=== PATIENT | male | born 1975 | race Caucasian/White ===

== ENCOUNTER 2019-08-02 08:38 | Outpatient (CLI) | payer OTHER, SELFPAY ==
[2019-08-02 09:26] LABS: Add Urine Microscopic? YES; Appearance Urine Clear (Clear); Bacteria Urine Trace /hpf; Bilirubin Urine Negative (Negative); Blood Urine 1+ (Negative); Color Urine Yellow (Yellow); Glucose Urine UA Negative (Negative); Ketones Urine Negative (Negative); Leukocyte Esterase Ur Negative LEU/UL (NEGATIVE); Mucus Urine Rare /lpf; Nitrate Urine Negative (Negative); Protein Urine Negative (Negative); RBC Urine 0-2 /hpf (0-2); Squamous Epithelial Cell Urine Rare /hpf (Few); Urobilinogen Urine Negative mg/dL (<2.0); WBC Urine 0-3 /hpf (0-3)
[2019-08-02 09:33] LABS: Hematocrit 45.6 % (42.0-52.0); Hemoglobin 14.8 g/dL (14.0-18.0); Mean Corpuscular HGB Conc 32.5 g/dl (32-36); Mean Corpuscular Hemoglobin 32.5 pg (26-34); Mean Platelet Volume 9.9 fl (7.4-10.4); Platelet Count Result 307 k/mm3 (150-375); Red Blood Count 4.56 M/mm3 (4.6-6.20); Red Cell Distribution Width 13.3 % (11.5-14.5); White Blood Count 9.1 K/mm3 (4.5-10.0)
[2019-08-02 09:35] LABS: Hemoglobin A1C 5.3 % (<5.7)
[2019-08-02 09:36] LABS: Alanine Aminotransferase 15 U/L (4-50); Albumin Level 4.2 g/dL (3.5-5.1); Alkaline Phosphatase 69 U/L (38-126); Aspartate Amino Transferase 21 U/L (17-59); Bilirubin,Total 0.7 mg/dL (0.2-1.3); Blood Urea Nitrogen 11 mg/dL (9-20); Calcium 8.9 mg/dL (8.4-10.2); Carbon Dioxide 24 mmol/L (22-30); Chloride 107 mmol/L (98-107); Cholesterol 142 mg/dL (0-200); Estimated Glomerular Filt Rate > 60; Glucose 103 mg/dL (75-110); HDL Direct 37 mg/dL; Sodium 144 mmol/L (137-145); Triglycerides 110 mg/dL (<150)
[2019-08-02 09:48] LABS: LDL Cholesterol Direct 87 mg/dL
[2019-08-02 10:11] LABS: Prostate Specific Antigen 0.8 ng/mL (< OR = 4.0)
== END 2019-08-02 08:39 | disposition home or self-care (01) ==
PROVIDERS: PCP Family Medicine Sports Medicine; Visit Provider Family Medicine Sports Medicine
DX: I10 Essential (primary) hypertension (principal); E11.9 Type 2 diabetes mellitus without complications; F41.9 Anxiety disorder, unspecified
CPT/HCPCS: 36415; 80053; 80061; 81001; 83036; 84153; 84443; 85027

== ENCOUNTER 2019-10-14 14:19 | Outpatient (CLI) | payer OTHER, SELFPAY ==
--- NOTE | ~2019-10-14 | CT_ITS ---
EXAMINATION: CT abdomen pelvis wo/w con EXAM DATE: 10/14/2019 15:39 INDICATION: Microscopic hematuria. TECHNIQUE: Spiral CT of the abdomen and pelvis was performed without contrast. The patient was then injected with small bolus intravenous Omnipaque 350, followed by delay of approximately 10 minutes to allow collecting system to opacify. A post contrast scan abdomen and pelvis was performed during inj ection of remaining contrast. A total of 130 cc intravenous contrast was administered. The dose-alaina th product (DLP) for this examination was 657.66 mGy-cm. The exposure was tailored according to hilda ent size (auto mA exposure control), and iterative reconstruction (ASIR) was used as additional dose reduction technique. There is no prior study for comparison. FINDINGS: There are 2 punctate right calyceal stones up to about 2 mm, and similar sized single left mid calyceal stone. No obstructing stones. The kidneys enhance symmetrically. There are no suspicio us renal lesions. The calyces and opacified portions of ureters are unremarkable, without filling de fects or focal suspicious strictures. The bladder is unremarkable. The prostate is unremarkable. The liver, spleen, adrenal glands and pancreas are unremarkable. Gallbladder is unremarkable. No bi liary obstruction. There is no retroperitoneal or pelvic lymphadenopathy. The appendix is large in caliber but does not appear obstructed and there is no adjacent inflammation . The stomach and small bowel are unremarkable. There is expected amount of colonic stool. No patrick e intraperitoneal gas. The heart is normal in size. There are no pericardial or pleural effusions. The lung bases are unremarkable. Moderate to severe disc disease L2-3, moderate at L4-5 and L5-S1. There are no osteoblastic or osteolytic lesions identified. IMPRESSION: Punctate bilateral nephrolithiasis. Reviewed, dictated and finalized at location A.
--- NOTE | ~2019-10-14 | XR_ITS ---
XR abdomen/kub 1V 10/14/2019 14:41 INDICATION: Microscopic hematuria TECHNIQUE: KUB COMPARISON: No prior studies for comparison. FINDINGS: Bowel gas pattern is normal. There is no evidence of free air, mass, organomegaly, ascites or obstruction. No abnormal calculi are seen. The bones appear intact. Moderate lumbar spondylosis . There are pelvic phleboliths. IMPRESSION: 1: No acute abdominal abnormality identified. Reviewed, dictated and finalized at location A.
[2019-10-14 15:13] LABS: Estimated Glomerular Filt Rate > 60
== END 2019-10-14 14:20 | disposition home or self-care (01) ==
PROVIDERS: PCP Family Medicine Sports Medicine; Visit Provider Urology
DX: N20.0 Calculus of kidney (principal)
CPT/HCPCS: 36415; 74018; 74178; Q9967

== ENCOUNTER 2025-03-13 00:28 | Day surgery (SDC) | payer OTHER, SELFPAY ==
[2025-03-02 09:50] VITALS: BMI 25.9
[2025-03-13 08:42] VITALS: BP 179/109; PULSE 74; RESP 20; TEMP 36.8; O2SAT 100; BMI 25.2
[2025-03-13] MEDS: LACTATED RINGERS 1,000 ML 150 ML IV CONT (08:52)
--- NOTE | 2025-03-13 09:27 | SUR.PREOP ---
Patient informed of anesthesia delay- denies any issues at this time. I will keep them updated.
--- NOTE | 2025-03-13 11:03 | WPDANESEPPF ---
Anes - Initial Pre Proc Eval Procedure: Operation Date: 03/13/25 10:00 Proposed Procedures p Screening Colonoscopy - Rome Shannon MD Date/Time: 03/13/25 11:03 Surgeon: Rome Shannon MD Pre Op Diagnosis: Screening Patient Data Age: 49 Gender: M Height: 1.68 m Weight: 71.1 kg Last Vital Signs Temp 98.2 F 03/13/25 08:42 Pulse 74 03/13/25 08:42 Resp 20 03/13/25 08:42 BP 179/109 H 03/13/25 08:42 Pulse Ox 100 03/13/25 08:42 O2 Del Method Room Air 03/13/25 08:42 Allergies Allergy/AdvReac Type Severity Reaction Status Date / Time No Known Allergies Allergy Verified 03/13/25 08:41 Home Medications ?Medication ?Instructions ?Recorded ?Confirmed ?Type amlodipine 10 mg tablet 10 mg PO DAILY 06/13/23 03/13/25 History citalopram 20 mg tablet (Celexa) 20 mg PO DAILY 06/13/23 03/13/25 History fluticasone fur. 200 mcg-umeclid 1 inh inhalation DAILY 06/13/23 03/13/25 History 62.5 mcg-vilant 25 mcg inhalat.powder (Trelegy Ellipta) gabapentin 300 mg capsule 300 mg PO TID 06/13/23 03/13/25 History hydroxyzine HCl 25 mg tablet 25 mg PO QID PRN anxiety 06/13/23 03/02/25 History metoprolol succinate 25 mg 12.5 mg PO DAILY 06/13/23 03/13/25 History tablet,extended release 24 hr naproxen 500 mg tablet 500 mg PO BID 06/13/23 03/02/25 History ondansetron HCl 4 mg tablet 4 mg PO Q8H 06/13/23 03/02/25 History pantoprazole 40 mg tablet,delayed 40 mg PO QAM 06/13/23 03/13/25 History release (Protonix) tamsulosin 0.4 mg capsule 0.4 mg PO DAILY 06/13/23 03/13/25 History Patient hx anesthesia problems: none Family hx anesthesia problems: none Results Review: All pre-operative results and documents have been reviewed as part of the pre-operative evaluation. [facility] Surgical History Surgical History History of vasectomy Family History Family History Father Alcoholism Heart disease Mother Asthma Hypertension Depression Thyroid disorder Sibling Diabetes mellitus Cerebrovascular accident Thyroid disorder Social History Social History Smoking packs per day: 1.5 Smoking cigarettes per day: 30.0 Smoking status: Current every day smoker Tobacco type: cigarettes Alcohol intake: never Substance use: current Substance use type: marijuana Do You Feel Safe in your Home?: Yes Lack of Transportation: No Lack of Food: Never True Current Housing: I Have Housing Concerned About Future Housing: No Difficulty Paying Gas/Electric Bills: No Difficulty Paying for Meds: No Currently Unemployed: No Education: High School Diploma/GED Difficulty w/ Childcare or Family Care: No Living arrangements: with family Spiritual care concerns: No Anes - Eval Final PreProcedure Day of Procedure 03/13/25 11:03 Patient weight: normal Lungs: normal air movement Airway: Mallampati scale class II Neurological: alert and oriented Last oral intake: >/= 8 hours ASA classification: II Emergent: no Anesthetic plan: proceed Anesthesia type and monitoring: general GIVS and standard monitoring Results Review: All pre-operative results and documents have been reviewed as part of the pre-operative evaluation. HTN, poorly controlled, hx of smoking. Informed Consent: The patient's anesthetic plan and its attendant risks and benefits were discussed with the patient/family/POA. Questions were solicited and answers provided to the satisfaction of the patient/family/POA.
--- NOTE | 2025-03-13 11:11 | PM.IMHP ---
H&P: HPI History of Present Illness Date/Time: 03/13/25 11:11 Chief Complaint: Screening colonoscopy Narrative: This is the patient's first colonoscopy. There are no GI symptoms and there is no family history of colorectal cancer. Review of Systems Review of Systems: All systems reviewed & are unremarkable except as noted in HPI and below PMFSH Surgical History Surgical History History of vasectomy Family History Family History Father Alcoholism Heart disease Mother Asthma Hypertension Depression Thyroid disorder Sibling Diabetes mellitus Cerebrovascular accident Thyroid disorder Social History Social History Smoking packs per day: 1.5 Smoking cigarettes per day: 30.0 Smoking status: Current every day smoker Tobacco type: cigarettes Alcohol intake: never Substance use: current Substance use type: marijuana Do You Feel Safe in your Home?: Yes Lack of Transportation: No Lack of Food: Never True Current Housing: I Have Housing Concerned About Future Housing: No Difficulty Paying Gas/Electric Bills: No Difficulty Paying for Meds: No Currently Unemployed: No Education: High School Diploma/GED Difficulty w/ Childcare or Family Care: No Living arrangements: with family Spiritual care concerns: No Meds Home Medications and Allergies Home Medications ?Medication ?Instructions ?Recorded ?Confirmed ?Type amlodipine 10 mg tablet 10 mg PO DAILY 06/13/23 03/13/25 History citalopram 20 mg tablet (Celexa) 20 mg PO DAILY 06/13/23 03/13/25 History fluticasone fur. 200 mcg-umeclid 1 inh inhalation DAILY 06/13/23 03/13/25 History 62.5 mcg-vilant 25 mcg inhalat.powder (Trelegy Ellipta) gabapentin 300 mg capsule 300 mg PO TID 06/13/23 03/13/25 History hydroxyzine HCl 25 mg tablet 25 mg PO QID PRN anxiety 06/13/23 03/02/25 History metoprolol succinate 25 mg 12.5 mg PO DAILY 06/13/23 03/13/25 History tablet,extended release 24 hr naproxen 500 mg tablet 500 mg PO BID 06/13/23 03/02/25 History ondansetron HCl 4 mg tablet 4 mg PO Q8H 06/13/23 03/02/25 History pantoprazole 40 mg tablet,delayed 40 mg PO QAM 06/13/23 03/13/25 History release (Protonix) tamsulosin 0.4 mg capsule 0.4 mg PO DAILY 06/13/23 03/13/25 History Allergies Allergy/AdvReac Type Severity Reaction Status Date / Time No Known Allergies Allergy Verified 03/13/25 08:41 Vital Signs Vital Signs - 24 hr 03/13/25 08:42 Temperature 98.2 F Pulse Rate 74 Respiratory Rate 20 Blood Pressure 179/109 H Pulse Oximetry 100 Oxygen Delivery Room Air Exam Const: General: cooperative and healthy appearing Resp: Effort & Inspection: normal respiratory effort and able to speak in complete sentences Auscultation: clear to auscultation bilaterally Cardio: Rate: regular rate Rhythm: regular rhythm GI: Inspection: normal to inspection GI Palp: No No hepatosplenomegaly present Auscultation: normal bowel sounds Rectal Exam: deferred Skin: General skin exam: normal color Psych: Appearance: grossly normal Mental Status: mental status grossly normal Assessment and Plan Assessment and plan (1) Encounter for screening colonoscopy: Code(s): Z12.11 - Encounter for screening for malignant neoplasm of colon Status: Acute Assessment and Plan: The patient is deemed a good candidate for the procedure. Consent signed. Will proceed.
[2025-03-13 11:37] VITALS: BP 131/92; PULSE 70; RESP 17; O2SAT 97
[2025-03-13 11:47] VITALS: BP 155/88; PULSE 66; RESP 19; O2SAT 96
[2025-03-13 11:57] VITALS: BP 151/106; PULSE 64; RESP 18; O2SAT 98
== END 2025-03-13 12:00 | disposition home or self-care (01) ==
PROVIDERS: PCP Family Medicine; Referring Provider Nurse Practitioner; Visit Provider Internal Medicine Gastroenterology
PROC: 0DJD8ZZ Inspection of Lower Intestinal Tract, Via Natural or Artificial Opening Endoscopic (ICD-10-PCS; CPT 45378; principal; 2025-03-13 10:00)
DX: Z12.11 Encounter for screening for malignant neoplasm of colon (principal); K57.30 Diverticulosis of large intestine without perforation or abscess without bleeding; I10 Essential (primary) hypertension; F17.210 Nicotine dependence, cigarettes, uncomplicated; F12.90 Cannabis use, unspecified, uncomplicated; Z79.51 Long term (current) use of inhaled steroids; Z79.1 Long term (current) use of non-steroidal anti-inflammatories (NSAID); Z98.890 Other specified postprocedural states; Z82.49 Family history of ischemic heart disease and other diseases of the circulatory system
CPT/HCPCS: 45378; J2003; J2704; J7120